=== PATIENT | female | born 1980 | race Caucasian/White ===

== ENCOUNTER 2020-01-14 09:10 | Emergency (ER) | payer MEDICAID ==
[~2020-01-14] VITALS: Ht 152.4 cm; Wt 87.0 kg
[2020-01-14] MEDS ORDERED: [UNRECOGNIZED DRUG - CODE] NS (09:21)
[2020-01-14] MEDS ORDERED: ONDA4TAB5 PO (09:21)
[2020-01-14] MEDS ORDERED: KETOROLAC 30MG/ML VIAL IV STA (09:47)
[2020-01-14] MEDS ORDERED: SODIUM CHLORIDE 0.9% 1,000 ML IV ONE (09:47)
[2020-01-14] MEDS ORDERED: METOCLOPRAMIDE HCL 10MG/2ML VIAL IV ONE (10:00)
[2020-01-14 10:07] LABS: BASOPHILS % 0.2 % (0.0-2.0); EOSINOPHILS % 0.4 % (0.0-5.0); HEMATOCRIT. 35.6 % (36.0-48.0); HEMOGLOBIN. 11.8 g/dL (12.0-16.0); LYMPHOCYTES % 28.4 % (20.0-50.0); MEAN CORPUSCULAR HEMOGLOBIN 26.9 pg (28.0-32.0); MEAN CORPUSCULAR VOLUME 80.9 fL (81.0-99.0); MEAN PLATELET VOLUME 7.5 fl (7.4-10.4); MONOCYTES % 6.1 % (2.0-8.0); NEUTROPHILS % 64.9 % (40.0-76.0); PLATELET 381 x1000/uL (130-400); RED CELL DISTRIBUTION WIDTH 14.4 % (11.6-14.6)
[2020-01-14 10:13] LABS: CHLORIDE 105 mEq/L (98-107)
[2020-01-14 12:03] LABS: CLARITY URINE CLEAR (CLEAR); COLOR URINE YELLOW (YELLOW); KETONES URINE 1+ (NEGATIVE); LEUKOCYTE ESTERASE URINE NEGATIVE (NEGATIVE); NITRITE URINE NEGATIVE (NEGATIVE); OCCULT BLOOD URINE 1+ (NEGATIVE); PROTEIN URINE NEGATIVE (NEGATIVE); SPECIFIC GRAVITY URINE 1.012 (1.005-1.030); UROBILINOGEN URINE 0.2 E.U./dL (0.2-1.0)
[2020-01-14 13:52] VITALS: BP 132/69
== END 2020-01-14 14:05 | disposition home or self-care (01) ==
LOC: ER 09:10 → EDSEX 09:10 → ER 14:05
DX: G43.909 Migraine, unspecified, not intractable, without status migrainosus (principal); M94.0 Chondrocostal junction syndrome [Tietze]
CPT/HCPCS: 36415; 71045; 80053; 81003; 81025; 83690; 85025; 93005; 96361; 96374; 96375; 99285; J1885; J2765; J7030